=== PATIENT | male | born 1960 | race African-American/Black ===

== ENCOUNTER → 2019-09-16 | Outpatient (CLI) | payer OTHER ==
--- NOTE | 2019-09-16 10:18 | REP ---
RIGHT KNEE SERIES: Four views of the right knee performed. I see no acute fracture or dislocation. Metallic screws are seen in the medial femoral condyle, lateral tibial plateau and proximal tibial shaft. There is moderate diffuse joint space narrowing with moderate subchondral sclerosis. Very large spurs are noted of the femoral condyles and patella. Multiple joint bodies are seen both anteriorly and posteriorly on the lateral view. There appear to be two or three large joint bodies in the infrapatellar region up to 2.7 cm in diameter. There are two joint bodies posteriorly, the larger measuring 2.5 cm in maximum diameter. There is extensive calcification of the upper as well as the lower portions of the patellar tendon. There is a moderate joint effusion. IMPRESSION: Moderate diffuse degenerative joint disease. Evidence of prior surgery. Large spurs of the femoral condyles and patella. Multiple large joint bodies. Moderate joint effusion. Electronically Signed by Parker Huddleston MD 09/16/2019 03:56 P
== END ==
LOC: M RAD 08:49
PROVIDERS: ATTEND Surgery
DX: M25.561 Pain in right knee (principal)